=== PATIENT | female | born 1960 | race Caucasian/White ===

== ENCOUNTER 2021-04-10 00:05 | Emergency (ER) | payer OTHER ==
[~2021-04-10] VITALS: Ht 167.6 cm; Wt 59.0 kg
[2021-04-10] MEDS ORDERED: AZIT250 PO (01:18)
[2021-04-10] MEDS ORDERED: ALBU90OI INH (01:18)
== END 2021-04-10 01:33 | disposition home or self-care (01) ==
LOC: ER 00:05
DX: J18.9 Pneumonia, unspecified organism (principal); Z20.822 Contact with and (suspected) exposure to COVID-19
CPT/HCPCS: 71045; 94640; 99284-25; A9270